=== PATIENT | female | born 1945 | race Caucasian/White ===

== ENCOUNTER 2017-07-03 14:40 | Emergency (ER) | payer OTHER ==
[~2017-07-03] VITALS: Ht 160 cm; Wt 59.9 kg
--- NOTE | ~2017-07-03 | EKG ---
[address] [address] ELECTROCARDIOGRAM REPORT Name: ALAN RAMOS Room #: DEP [facility]#: [id number] Admission: 07/03/17 Attend Phys: Discharge: 07/03/17 Date of : 47 Report #: [id number] THIS REPORT FOR: //name// [facility] ED Test Date: 2017-07-03 Test Time: 14:54:22 Pat Name: ALAN RAMOS Department: Room: Gender: F See Wheeler: NENITA : 1945 Requested By: Sylvester Mittal Order Number: [id number] MD: Ori Mosquera Measurements Intervals [place] Rate: 96 P: 69 IA: 149 QRS: -39 QRSD: 87 T: 46 QT: 337 QTc: 426 Interpretive Statements Sinus rhythm Left axis deviation Compared to ECG 09/14/2009 18:36:16 No significant change was found Electronically Signed On 07-04-2017 8:36:03 [employer] by Ori Mosquera [email or web address] <ELECTRONICALLY SIGNED> By: Ori Mosquera MD, [facility] 07/04/17 0836 D: 02/1453 145 Ori Mosquera MD, FACC /EPI
[~2017-07-03 14:40] MED LIST: ASPIR-TRIN325 MG PO; FIORINAL WITH1 EACH PO; GERITOL COMPLE1 EAC2 PO; LEVAQUIN 500 M500 M2 PO; NASAL DECONGEST30 MG; PREDNISONE 10 M10 MG PO; ROBITUSSIN COU118 M6 PO; SUDOGEST30 MG PO
[2017-07-03 15:23] LABS: ABSOLUTE NEUTROPHILS 8.7 thou/uL (1.4-8.2); BASOPHILS 0.6 % (0.0-2.0); EOSINOPHILS 0.2 % (0.0-3.0); HEMATOCRIT 42.7 % (37.0-47.0); HEMOGLOBIN 14.8 gm/dL (12.0-15.0); MCH 33.3 pg (26.0-34.0); MCHC 34.7 g/dL (28.0-37.0); MCV 96.1 fL (80.0-100.0); MONOCYTES 3.9 % (1.0-8.0); PLATELET COUNT 318 thou/uL (150-400); POLYS 81.3 % (36.0-66.0); RBC 4.44 mil/uL (4.20-5.00); RDW 12.8 % (10.5-14.5); WBC 10.7 thou/uL (4.0-11.0)
[2017-07-03 15:26] LABS: ANION GAP 9 mmol/L (7-16); BUN 14 mg/dL (7-18); CHLORIDE 107 mmol/L (98-107); CO2 28 mmol/L (21-32); CREATININE 0.8 mg/dL (0.6-1.0); GLUCOSE 116 mg/dL (74-106); POTASSIUM 3.8 mmol/L (3.5-5.1); SODIUM 144 mmol/L (136-145)
[2017-07-03 15:35] LABS: TROPONIN-I < 0.04 ng/mL (<0.06)
[2017-07-03 16:57] VITALS: BP 142/67
== END 2017-07-03 16:58 | disposition home or self-care (01) ==
LOC: ER 14:40
PROVIDERS: Emergency Medicine
DX: R00.2 Palpitations (principal); F17.210 Nicotine dependence, cigarettes, uncomplicated